=== PATIENT | male | born 1970 | race Two or more races ===

== ENCOUNTER 2021-11-29 09:31 | Outpatient (REF) | payer OTHER, SELFPAY ==
--- NOTE | ~2021-11-29 | XR_ITS ---
EXAMINATION: XR KNEE, RIGHT CLINICAL INFORMATION: Sprain COMPARISON: None TECHNIQUE: Four views of the right knee. FINDINGS: No fracture or dislocation. No suprapatellar joint effusion. Mild narrowing of the medial joint space height. No focal soft tissue swelling. Minimal vascular calcifications. XR/XR knee RT 4V IMPRESSION: Mild degenerative changes of the right knee.
== END 2021-11-29 09:32 | disposition home or self-care (01) ==
LOC: HO.HMGCX 09:31
PROVIDERS: PCP Nurse Practitioner Family; Visit Provider Internal Medicine
DX: S83.91XA Sprain of unspecified site of right knee, initial encounter (principal)
CPT/HCPCS: 73564